=== PATIENT | male | born 1990 | race Caucasian/White ===

== ENCOUNTER 2018-03-17 03:25 | Observation (INO) | payer SELFPAY ==
[~2018-03-17] VITALS: Ht 175.3 cm; Wt 120.0 kg
[2018-03-17 03:27] VITALS: BP 137/102; PULSE 77; RESP 18; TEMP 97.6; O2SAT 99
[2018-03-17 03:40] VITALS: BP_SYST 146; BP_SYST 150; BP_DIAS 82; BP_DIAS 84
--- NOTE | 2018-03-17 03:41 | PD ---
HPI Chief Complaint: Chest Pain Time Seen by Provider: 03:33 Travel History International Travel<30 days: No Contact w/Intl Traveler<30days: No Traveled to known affect area: No History of Present Illness HPI The patient is a 27 year old male who presents to the [facility] emergency department with a history of chest pain that began a week ago. It is coming and going. It usually occurs at night when he relaxes after working. It sometimes wakes him from sound sleep. It is in the left upper chest. He reports having shortness of breath with it. It sometimes is associated with left shoulder pain around the shoulder blade. He reports that the chest pain as a pressure sensation. He denies ever having this in the past. He denies any prior history of DVT, PE, or coronary artery disease. He denies having any significant family history of heart disease. He believes that his mother did have a blood clot in her upper extremity in the past. He denies any prior history of hypertension, hyperlipidemia, or diabetes mellitus. He does however smoke 1 pack of cigarettes per day. On review of systems otherwise, he denies having any known recent fevers, diaphoresis, neck pain, abdominal pain, vomiting , diarrhea, urinary symptoms, or neurologic symptoms. He has chronic chest congestion and intermittent cough of unknown cause. The patient additionally reports having some problems with indigestion intermittently. He denies taking any medication for this. [facility] Past Medical History Narrative Medical The patient's past medical history is reportedly none. Medical History: Denies Significant Hx Diminished Hearing: No Tetanus Vaccination: Unknown Influenza Vaccination: No Past Surgical History Narrative Surgical The patient's past surgical history is significant for a tonsillectomy. Tonsillectomy: Yes (as a child) Social History Alcohol Use: Yes (every other weekend) Tobacco Use: Yes (1 PPD) Substance Use: No Allergies-Medications (Allergen,Severity, Reaction): Coded Allergies: amoxicillin (Unverified Allergy, Unknown, 03/17/18) Narrative Medication None. Review of Systems Except as stated in HPI: all other systems reviewed are Neg General / Constitutional: No: Fever Eyes: No: Visual changes HENT: Positive: Congestion (Reportedly chronic congestion), No: Headaches Cardiovascular: Positive: Chest Pain or Discomfort, No: Dyspnea on exertion Respiratory: Positive: Cough (Reportedly chronic cough), No: Shortness of Breath Gastrointestinal: Positive: Indigestion, No: Nausea, Vomiting, Diarrhea, Abdominal Pain, Loss of Appetite Genitourinary: No: Dysuria Musculoskeletal: No: Pain Skin: No Rash Neurologic: No: Weakness Psychiatric: No: Depression Endocrine: No: Polydipsia Hematologic/Lymphatic: No: Easy Bruising Physical Exam Narrative General: The patient is a well-developed well-nourished male in no acute distress. Head and Neck exam: Head is normocephalic atraumatic. Eyes: EOMI, pupils are equal round and reactive to light. Nose: Midline septum with pink mucous membranes Mouth: Dentition unremarkable. Moist mucus membranes. Posterior oropharynx is not erythematous. No tonsillar hypertrophy. Uvula midline. Airway patent. Neck: No palpable lymphadenopathy. No nuchal rigidity. No thyromegaly. Cardiovascular: Regular rate and rhythm without murmurs, gallops, or rubs. No pulse deficit to the extremities on simultaneous auscultation and palpation of his radial artery. No chest wall tenderness on palpation Lungs: Clear to auscultation bilaterally. No wheezes, rhonchi, or rales. Abdomen: Soft, without tenderness to palpation in all 4 quadrants of the abdomen. No guarding, rebound, or rigidity. Normal bowel sounds are audible. No tenderness on palpation of McBurney's point. Negative Beal sign Extremities: No clubbing, cyanosis, or edema. 2+ pulses in all 4 extremities. No calf tenderness on palpation. Back: No spinous process tenderness to palpation. No costovertebral angle tenderness to palpation. Neurologic Exam: Grossly nonfocal. Skin Exam: No rash noted. Intact skin that is warm and dry. Data Data Last Documented VS Vital Signs Date Time Temp Pulse Resp B/P (MAP) Pulse Ox O2 Delivery O2 Flow Rate FiO2 03/17/18 03:49 97 Room Air 03/17/18 03:40 150/82 (104) 146/84 (104) 03/17/18 03:38 18 03/17/18 03:27 97.6 77 Orders Orders Electrocardiogram (03/17/18 03:33) B-Type Natriuretic Peptide (03/17/18 03:33) Ckmb (Isoenzyme) Profile (03/17/18 03:33) Complete Blood Count With Diff (03/17/18 03:33) Comprehensive Metabolic Panel (03/17/18 03:33) D-Dimer (03/17/18 03:33) Magnesium (Mg) (03/17/18 03:33) Prothrombin Time / Inr (Pt) (03/17/18 03:33) Act Partial Throm Time (Ptt) (03/17/18 03:33) Troponin I (03/17/18 03:33) Lipase (03/17/18 03:33) Ecg Monitoring (03/17/18 03:33) Bilateral Bp Monitoring (03/17/18 03:33) Iv Access Insert/Monitor (03/17/18 03:33) Oximetry (03/17/18 03:33) Oxygen Administration (03/17/18 03:33) Sodium Chloride 0.9% Flush (Ns Flush) (03/17/18 03:45) Chest, Pa & Lat (03/17/18 03:33) Aspirin Chew (Aspirin Chew) (03/17/18 04:30) Nitroglycerin 2% Oint (Nitroglycerin 2% (03/17/18 04:30) CKMB (03/17/18 03:50) CKMB% (03/17/18 03:50) Labs Laboratory Tests Test 03/17/18 03:50 White Blood Count 13.4 TH/MM3 Red Blood Count 4.72 MIL/MM3 Hemoglobin 14.9 GM/DL Hematocrit 42.6 % Mean Corpuscular Volume 90.2 FL Mean Corpuscular Hemoglobin 31.6 PG Mean Corpuscular Hemoglobin Concent 35.1 % Red Cell Distribution Width 13.2 % Platelet Count 204 TH/MM3 Mean Platelet Volume 8.2 FL Neutrophils (%) (Auto) 57.2 % Lymphocytes (%) (Auto) 33.8 % Monocytes (%) (Auto) 6.3 % Eosinophils (%) (Auto) 1.8 % Basophils (%) (Auto) 0.9 % Neutrophils # (Auto) 7.7 TH/MM3 Lymphocytes # (Auto) 4.5 TH/MM3 Monocytes # (Auto) 0.8 TH/MM3 Eosinophils # (Auto) 0.2 TH/MM3 Basophils # (Auto) 0.1 TH/MM3 CBC Comment DIFF FINAL Differential Comment Prothrombin Time 10.2 SEC Prothromb Time International Ratio 1.0 RATIO Activated Partial Thromboplast Time 28.6 SEC D-Dimer Quantitative (PE/DVT) LESS THAN 0.19 MG/L FEU Blood Urea Nitrogen 15 MG/DL Creatinine 1.02 MG/DL Random Glucose 93 MG/DL Total Protein 7.4 GM/DL Albumin 3.5 GM/DL Calcium Level 8.9 MG/DL Magnesium Level 1.9 MG/DL Alkaline Phosphatase 79 U/L Aspartate Amino Transf (AST/SGOT) 24 U/L Alanine Aminotransferase (ALT/SGPT) 33 U/L Total Bilirubin 0.3 MG/DL Sodium Level 141 MEQ/L Potassium Level 4.0 MEQ/L Chloride Level 107 MEQ/L Carbon Dioxide Level 28.7 MEQ/L Anion Gap 5 MEQ/L Estimat Glomerular Filtration Rate 86 ML/MIN Total Creatine Kinase 135 U/L Creatine Kinase MB 1.1 NG/ML Troponin I LESS THAN 0.02 NG/ML B-Type Natriuretic Peptide LESS THAN 2 PG/ML Lipase 165 U/L MDM Medical Decision Making Medical Screen Exam Complete: Yes Emergency Medical Condition: Yes Medical Record Reviewed: Yes Interpretation(s) Last Impressions Chest X-Ray 03/17/18 0333 Signed Impressions: Service Date/Time: Saturday, March 17, 2018 04:29 - CONCLUSION: No evidence of acute cardiopulmonary disease. Morales Fine MD Differential Diagnosis Acute coronary syndrome, versus pulmonary embolism, versus pneumonia, versus new onset congestive heart failure, versus acid reflux, versus anxiety disorder Narrative Course During the course of the patient's emergency department visit, the patient's history, examination, and differential diagnosis were reviewed with the patient. The patient was placed on a registered nurse cardiac telemetry with oximetry and frequent blood pressure monitoring. The patient had IV access obtained and blood work sent for analysis. The patient had an EKG done on arrival that shows a sinus rhythm heart rate of 82, QRS duration is 100 ms, QTC 401 ms, no acute ST segment elevation The patient was initially provided aspirin 324 mg p.o. 1, nitroglycerin 1 inch to the chest wall, famotidine 20 milligrams IV 1. The patient's laboratory studies were reviewed and remarkable for a white count of 13.4, hemoglobin 14.9, platelets 204 with a normal differential, CMP is remarkable for GFR of 86, cardiac enzymes within normal limits, BNP is less than 2, lipase 165, PT PTT within normal limits, d-dimer less than 0.19 decreasing likelihood of pulmonary embolism in this patient with no other significant risk factors. Radiology studies were reviewed and remarkable for a chest x-ray that showed no evidence of acute cardiopulmonary disease. The patient will be admitted to the chest pain center for rule out serial cardiac enzyme protocol and consideration of stress testing given his risk factors of chronic tobacco use and obesity. The patient's results were discussed with the patient, including the plan of care. I explained that further testing and/ or monitoring is indicated based on the patient's history, examination, and/ or laboratory findings. Therefore, I recommended admission for additional evaluation. The patient expressed understanding and was agreeable with this plan. The patient was admitted to the hospital in stable condition and sent to a bed under the care of the chest pain center. Diagnosis Primary Impression: Chest pain, rule out acute myocardial infarction Admitting Information Admitting Physician Requests: Nelda Rivera MD Mar 17, 2018 03:41
[2018-03-17] MEDS ORDERED: SODIUM CHLORIDE 0.9% FLUSH 10 ML FLUSH IVF PRN (03:45)
[2018-03-17 04:08] LABS: AUTOMATED NEUTROPHIL # 7.7 TH/MM3 (1.8-7.7); BASOPHIL # 0.1 TH/MM3 (0-0.2); BASOPHIL % 0.9 % (0.0-2.0); EOSINOPHIL # 0.2 TH/MM3 (0-0.4); EOSINOPHIL % 1.8 % (0.0-4.0); HEMATOCRIT 42.6 % (39.0-51.0); HEMOGLOBIN 14.9 GM/DL (13.0-17.0); LYMPH % 33.8 % (9.0-44.0); LYMPHOCYTE # 4.5 TH/MM3 (1.0-4.8); MEAN CELL VOLUME 90.2 FL (80.0-100.0); MEAN CORPUSCULAR HEMOGLOBIN 31.6 PG (27.0-34.0); MEAN CORPUSCULAR HGB CONC 35.1 % (32.0-36.0); MEAN PLATELET VOLUME 8.2 FL (7.0-11.0); MONO % 6.3 % (0.0-8.0); MONOCYTE # 0.8 TH/MM3 (0-0.9); NEUT % 57.2 % (16.0-70.0); PLATELET COUNT 204 TH/MM3 (150-450); RED BLOOD COUNT 4.72 MIL/MM3 (4.50-5.90); RED CELL DISTRIBUTION WIDTH 13.2 % (11.6-17.2); WHITE BLOOD COUNT 13.4 TH/MM3 (4.0-11.0)
[2018-03-17 04:18] LABS: PROTHROMBIN TIME - PATIENT 10.2 SEC (9.8-11.6)
[2018-03-17 04:23] LABS: ALKALINE PHOSPHATASE 79 U/L (45-117); TOTAL BILIRUBIN ADULT 0.3 MG/DL (0.2-1.0); TOTAL PROTEIN 7.4 GM/DL (6.4-8.2); TROPONIN I LESS THAN 0.02 NG/ML (0.02-0.05)
[2018-03-17 04:25] LABS: D-DIMER LESS THAN 0.19 MG/L FEU (0.00-0.50)
[2018-03-17] MEDS ORDERED: ASPIRIN 81 MG CHEW TAB CHEW ONE (04:30)
[2018-03-17] MEDS ORDERED: NITROGLYCERIN 2% OINT 1 GM PACKET TOPICAL ONE (04:30)
[2018-03-17 04:35] LABS: ALBUMIN 3.5 GM/DL (3.4-5.0); ALT (GPT) 33 U/L (12-78); AST (GOT) 24 U/L (15-37); BICARBONATE 28.7 MEQ/L (21.0-32.0); BLOOD UREA NITROGEN 15 MG/DL (7-18); CALCIUM 8.9 MG/DL (8.5-10.1); CHLORIDE 107 MEQ/L (98-107); CREATININE 1.02 MG/DL (0.60-1.30); GLOMERULAR FILTRATION RATE 86 ML/MIN (>89); GLUCOSE,RANDOM 93 MG/DL (74-106); MAGNESIUM 1.9 MG/DL (1.5-2.5); SODIUM (NA) 141 MEQ/L (136-145)
--- NOTE | 2018-03-17 04:54 | RADRPT ---
EXAM DATE/TIME: 03/17/2018 04:29 [place] COMPARISON: No previous studies available for comparison. INDICATIONS : Chest pain. MEDICAL HISTORY : None. SURGICAL HISTORY : None. ENCOUNTER: Initial ACUITY: 1 day PAIN SCORE: 0/10 LOCATION: Bilateral chest FINDINGS: PA and lateral views of the chest demonstrate the lungs to be symmetrically aerated without evidence of mass, infiltrate or effusion. The cardiomediastinal contours are unremarkable. Osseous structure s are intact. CONCLUSION: No evidence of acute cardiopulmonary disease. Morales Fine MD on March 17, 2018 at 4:53 Board Certified Radiologist. This report was verified electronically.
[2018-03-17 05:00] VITALS: BP 148/68; PULSE 68; RESP 16; O2SAT 98
[2018-03-17] MEDS ORDERED: FAMOTIDINE 20 MG/2 ML VIAL IV PUSH SCH (05:45)
[2018-03-17] MEDS ORDERED: SODIUM CHLORIDE 0.9% FLUSH 10 ML FLUSH IV FLUSH PRN (06:00)
[2018-03-17] MEDS ORDERED: ACETAMINOPHEN 500 MG CPLT PO PRN (06:00)
--- NOTE | 2018-03-17 08:07 | HHI.HP ---
HPI Primary Care Physician No Primary Care Physician Chief Complaint Chest pain History of Present Illness 27-year-old male current smoker presents to emergency room for further evaluation of chest pain. Onset 1 week. Location upper chest. Characterized as pressure. Occasional left shoulder numbness, otherwise no radiation. No associated symptoms of nausea or diaphoresis. Occasionally will feel short of breath with chest pain. No known precipitating factors. In fact, discomfort more noticeable during resting periods or before falling to sleep. Exertional does not make pain worse, stating he does not notice discomfort during the day. No recent injury or trauma. Relieving factors include taking deep breaths, rubbing left shoulder, or "splashing water on my face." No current chest discomfort. Denies similar pain in the past. Review of Systems General: No fatigue,weakness, fever, chills, recent illness, or change in appetite. Has been in his general, without any recent injury or trauma. HEENT: No RAMIREZ, no vision changes, no nasal congestion or drainage, no dysphasia CV: As stated above. No palpitations, intermittent leg pain, or dizziness. RESP: No SOB, cough, wheeze, or asthma. Current smoker. GI: No nausea, vomiting, bowel changes, diarrhea, constipation, pain, or distention. : No dysuria, urgency, frequency EXT: No lower leg edema, no paraesthesias MS: No discomfort or change in ROM NEURO: No difficulty with balance, LOC, motor/sensory deficits PSYCH: No anxiety, depression, suicidal ideation SKIN: No rashes, no concerning lesions Past Family Social History Allergies: Coded Allergies: amoxicillin (Unverified Allergy, Unknown, 03/17/18) Past Medical History None Past Surgical History Tonsillectomy Reported Medications Reported Meds & Active Scripts Active No Active Prescriptions or Reported Medications Active Ordered Medications Current Medications Medications (Trade) Dose Ordered Sig/Sony Route Start Time Stop Time Status Last Admin (NS Flush) 2 ml UNSCH PRN IVF 03/17/18 03:45 (Pepcid Inj) 20 mg NOW IV PUSH 03/17/18 05:45 03/17/18 09:00 (NS Flush) 2 ml UNSCH PRN IV FLUSH 03/17/18 06:00 (NS Flush) 2 ml BID IV FLUSH 03/17/18 09:00 (Tylenol) 500 mg Q4H PRN PO 03/17/18 06:00 (Pepcid) 20 mg BID PO 03/17/18 09:00 Family History Noncontributory for early onset cardiovascular disease. Mother diagnosed with hypertension. Social History No known diabetes, hypertension, hyperlipidemia. Current smoker 1 pack/daily. Past cardiac testing None Physical Exam Vital Signs Vital Signs Date Time Temp Pulse Resp B/P (MAP) Pulse Ox O2 Delivery O2 Flow Rate FiO2 03/17/18 05:00 68 16 148/68 (94) 98 Room Air 03/17/18 03:49 97 Room Air 03/17/18 03:40 150/82 (104) 146/84 (104) 03/17/18 03:38 18 98 03/17/18 03:27 97.6 77 18 137/102 (114) 99 Physical Exam GENERAL: Alert WN, WD, NAD, pleasant, moderately obese male HEAD: NC, AT EYES: Sclera clear, conjunctiva without injection, pupils equal and round ENT: Mucous membranes pink and moist CV: RRR, without murmur, rub, gallop, no JVD, S1-S2 no S3-S4. Chest wall nontender with palpation. RESP: Clear lungs throughout bilateral, no crackles, wheeze, rhonchi, symmetrical chest rise, nonlabored, able to speak in full sentences ABD: Soft, NT, ND, no masses, positive bowel tones EXT: Pulses +2x4, no dependent edema MS: Normal tone -4 extremities, nontender, no obvious deformities, full range of motion NEURO: CN II through CN XII grossly intact, motor strength 5/5, gait WNL PSYCH: A+O x3, pleasant affect, appropriate speech, mood, insight and judgment SKIN: Normal turgor, normal texture, no lesions, no rashes, brisk cap refill, even hair distribution Laboratory Laboratory Tests Test 03/17/18 03:50 03/17/18 07:04 White Blood Count 13.4 Red Blood Count 4.72 Hemoglobin 14.9 Hematocrit 42.6 Mean Corpuscular Volume 90.2 Mean Corpuscular Hemoglobin 31.6 Mean Corpuscular Hemoglobin Concent 35.1 Red Cell Distribution Width 13.2 Platelet Count 204 Mean Platelet Volume 8.2 Neutrophils (%) (Auto) 57.2 Lymphocytes (%) (Auto) 33.8 Monocytes (%) (Auto) 6.3 Eosinophils (%) (Auto) 1.8 Basophils (%) (Auto) 0.9 Neutrophils # (Auto) 7.7 Lymphocytes # (Auto) 4.5 Monocytes # (Auto) 0.8 Eosinophils # (Auto) 0.2 Basophils # (Auto) 0.1 CBC Comment DIFF FINAL Differential Comment Prothrombin Time 10.2 Prothromb Time International Ratio 1.0 Activated Partial Thromboplast Time 28.6 D-Dimer Quantitative (PE/DVT) LESS THAN 0.19 Blood Urea Nitrogen 15 Creatinine 1.02 Random Glucose 93 Total Protein 7.4 Albumin 3.5 Calcium Level 8.9 Magnesium Level 1.9 Alkaline Phosphatase 79 Aspartate Amino Transf (AST/SGOT) 24 Alanine Aminotransferase (ALT/SGPT) 33 Total Bilirubin 0.3 Sodium Level 141 Potassium Level 4.0 Chloride Level 107 Carbon Dioxide Level 28.7 Anion Gap 5 Estimat Glomerular Filtration Rate 86 Total Creatine Kinase 135 Creatine Kinase MB 1.1 Troponin I LESS THAN 0.02 B-Type Natriuretic Peptide LESS THAN 2 Lipase 165 Result Diagram: 03/17/18 0350 03/17/18 0350 Imaging Last 48 hours Impressions Chest X-Ray 03/17/18 0333 Signed Impressions: Service Date/Time: Saturday, March 17, 2018 04:29 - CONCLUSION: No evidence of acute cardiopulmonary disease. Morales Fine MD Course EKG Normal sinus rhythm, normal axis, no ST-T segment change Caprini VTE Risk Assessment Caprini VTE Risk Assessment: No/Low Risk (score <= 1) Caprini Risk Assessment Model Point Value = 1 Point Value = 2 Point Value = 3 Point Value = 5 Age 41-60 Minor surgery BMI > 25 kg/m2 Swollen legs Varicose veins or History of unexplained or recurrent spontaneous Oral contraceptives or hormone replacement Sepsis (< 1 month) Serious lung disease, including pneumonia (< 1 month) Abnormal pulmonary function Acute myocardial infarction Congestive heart failure (< 1 month) History of inflammatory bowel disease Medical patient at bed rest Age 61-74 Arthroscopic surgery Major open surgery (> 45 min) Laparoscopic surgery (> 45 min) Malignancy Confined to bed (> 72 hours) Immobilizing plaster cast Central venous access Age >= 75 History of VTE Family history of VTE Factor V Leiden Prothrombin [id number] Lupus anticoagulant Anticardiolipin antibodies Elevated serum homocysteine Heparin-induced thrombocytopenia Other congenital or acquired thrombophilia Stroke (< 1 month) Elective arthroplasty Hip, pelvis, or leg fracture Acute spinal cord injury (< 1 month) Prophylaxis Regimen Total Risk Factor Score Risk Level Prophylaxis Regimen 0-1 Low Early ambulation 2 Moderate Order ONE of the following: *Sequential Compression Device (SCD) *Heparin 5000 units SQ BID 3-4 Higher Order ONE of the following medications: *Heparin 5000 units SQ TID *Enoxaparin/Lovenox 40 mg SQ daily (WT < 150 kg, CrCl > 30 mL/min) *Enoxaparin/Lovenox 30 mg SQ daily (WT < 150 kg, CrCl > 10-29 mL/min) *Enoxaparin/Lovenox 30 mg SQ BID (WT < 150 kg, CrCl > 30 mL/min) AND/OR *Sequential Compression Device (SCD) 5 or more Highest Order ONE of the following medications: *Heparin 5000 units SQ TID (Preferred with Epidurals) *Enoxaparin/Lovenox 40 mg SQ daily (WT < 150 kg, CrCl > 30 mL/min) *Enoxaparin/Lovenox 30 mg SQ daily (WT < 150 kg, CrCl > 10-29 mL/min) *Enoxaparin/Lovenox 30 mg SQ BID (WT < 150 kg, CrCl > 30 mL/min) AND *Sequential Compression Device (SCD) Assessment and Plan Assessment and Plan #1 Atypical chest pain-chest pain center. ACS protocol began in ER, second troponin pending. Seen and evaluated by Dr. Jordi Mendez. Plan to perform exercise cardiac stress testing this morning. If unremarkable, plans to be discharged home follow-up with PCP. Discussed local medical clinics available to primary care provider. Holter monitor upon discharge. Reassurance provided, discomfort most likely musculoskeletal in nature. Encouraged use of heating pad to affect area and Ibuprofen for next 3 days, taking with food. Verbalized understanding. #2 Tobacco use-strongly encouraged stress importance of tobacco cessation. Instructed to quit smoking. Zoey Escudero Mar 17, 2018 08:07
[2018-03-17] MEDS ORDERED: ONDANSETRON HCL 4 MG/2 ML VIAL IV PUSH PRN (08:15)
[2018-03-17] MEDS ORDERED: NITROGLYCERIN 0.4 MG SL 25 TABS/BTL SL PRN (08:15)
[2018-03-17 08:18] VITALS: BP 138/70
[2018-03-17] MEDS ORDERED: SODIUM CHLORIDE 0.9% FLUSH 10 ML FLUSH IV FLUSH SCH (09:00)
[2018-03-17] MEDS ORDERED: FAMOTIDINE 20 MG TAB PO SCH (09:00)
[2018-03-17] MEDS ORDERED: ASPIRIN 325 MG TAB PO SCH (09:00)
[2018-03-17 09:31] VITALS: BP 120/74; PULSE 80; RESP 16; TEMP 97.9; O2SAT 95
--- NOTE | 2018-03-17 09:51 | HHI.DCPOC ---
Discharge Care Plan Diagnosis: (1) Tobacco abuse (2) Musculoskeletal chest pain Goals to Promote Your Health * To prevent worsening of your condition and complications * To maintain your health at the optimal level Directions to Meet Your Goals Take your medications as prescribed Follow your dietary instruction Follow activity as directed Keep your appointments as scheduled Take your immunizations and boosters as scheduled If your symptoms worsen call your PCP, if no PCP go to Urgent Care Center or Emergency Room Smoking is Dangerous to Your Health. Avoid second hand smoke Call the 24-hour hour crisis hotline for domestic abuse at Zoey Escudero Mar 17, 2018 09:51
[2018-03-17] MEDS ORDERED: IBUP-232 PO (09:52)
[2018-03-17] MEDS ORDERED: IBUPROFEN 600 MG TAB PO ONE (10:00)
--- NOTE | 2018-03-17 10:40 | EKG ---
Date Performed: 03/17/2018 Time Performed: 03:35:33 PTAGE: 27 years EKG: Sinus rhythm NORMAL ECG NO PREVIOUS TRACING DOCTOR: Jrodi Mendez Interpretating Date/Time 03/17/2018 10:38:42
--- NOTE | 2018-03-17 10:42 | TR ---
Date Performed: 03/17/2018 Time Performed: 08:34:07 DOCTOR: Jordi Mendez DRUG LIST: CLINICAL HISTORY: REASON FOR TEST: Chest pain REASON FOR ENDING: OBSERVATION: CONCLUSION: Binh protocol completed. Stopped sec to exceeding target heart rate and leg fatigue . Maximum CD=793 Target HR Achieved=87.0% Maximum TY=287/96 Total Exercise Time=6:39. No reprod chest discomfort. No ectopy. Upsloping St segments,no t wave changes. Normal bp response. Good exercise to lerance. Recovery quick and unremarkable. COMMENTS: Patient exercised using the Binh protocol. No electrocardiographic changes were seen to suggest ischemia. Hemodynamic response to exercise was normal. No significant arrhythmia was prese nt.
== END 2018-03-17 11:26 | disposition home or self-care (01) ==
LOC: NEPC 03:25 → NEDA 05:38 → NEPHCDU 06:41
PROVIDERS: ADMIT Internal Medicine Cardiovascular Disease; ATTEND Internal Medicine Cardiovascular Disease
DX: R07.89 Other chest pain (principal); R06.02 Shortness of breath; R20.0 Anesthesia of skin; F17.200 Nicotine dependence, unspecified, uncomplicated
CPT/HCPCS: 71046; 80053; 82550; 82552; 83690; 83735; 83880; 84484; 85025; 85379; 85610; 85730; 93005; 93017; 99285; G0378